=== PATIENT | male | born 1955 | race Hispanic/Latino ===

== ENCOUNTER 2024-10-12 10:32 | Emergency (ER) | payer OTHER, MEDICARE ==
[~2024-10-12] VITALS: Ht 180.3 cm; Wt 126.6 kg
[~2024-10-12 10:32] MED LIST: FURO40TA5 PO; GABA-529 PO; HYDR25TA PO; METF-444 PO; SPIR100T PO; TERA2CAP82 PO
--- NOTE | 2024-10-12 10:47 | ERN ---
ED Note History of Present Illness Stated Complaint: WEAKNESS Chief Complaint: Weakness Time Seen by MD: 10:37 Dictation: PATIENT IS A 69-YEAR-OLD MALE COMING IN TODAY STATES HE HAS BEEN FEELING WEAK FOR THE LAST 2-3 DAYS AND TODAY HIS BLOOD PRESSURE WAS LOW, SYSTOLIC IN THE 90S. HE DENIES CHEST PAIN BACK PAIN SOB. NIH IS 0. HE STATES HE DOES TAKE BLOOD PRESSURE MEDICATIONS AND TOOK HIM THIS MORNING. Allergies: Coded Allergies: No Known Allergies (Unverified Allergy, Unknown, 09/14/24) Home Meds Reported Medications Metoprolol Succinate (Metoprolol Succinate) 100 Mg Tab.er.24h, 100 MG PO DAILY, TAB 10/12/24 Tizanidine HCl (Tizanidine HCl) 4 Mg Tablet, 4 MG PO AD, TAB 10/12/24 Lisinopril (Lisinopril) 40 Mg Tablet, 40 MG PO DAILY, TAB 10/12/24 Furosemide (Furosemide) 40 Mg Tablet, 40 MG PO DAILY, TAB 09/15/24 Spironolactone (Aldactone) 100 Mg Tablet, 100 MG PO DAILY, TAB 09/15/24 Gabapentin (Gabapentin) 100 Mg Capsule, 100 MG PO BID, CAP 09/15/24 Terazosin HCl (Hytrin) 2 Mg Cap, 2 MG PO DAILY, CAP 09/15/24 Hydrochlorothiazide (Hydrochlorothiazide) 25 Mg Tablet, 25 MG PO DAILY, TAB 09/15/24 Metformin HCl (Metformin HCl) 500 Mg Tablet, 500 MG PO DAILY, TAB 09/15/24 Past Medical History Past Medical History: Hypertension Additional Past Medical Hx: BPH Surgical History: Other, None Surgical History Other: RT KNEE SX, ABD HERNIA REPAIR RN Note Reviewed/Agreed w/PFSH: Yes Review of System Dictation CONSTITUTIONAL: NEGATIVE EXCEPT FOR HPI WEAKNESS HEAD/FACE: NEGATIVE EXCEPT FOR HPI EENT: NEGATIVE EXCEPT FOR HPI RESPIRATORY: NEGATIVE EXCEPT FOR HPI GASTROINTESTINAL/ABDOMINAL: NEGATIVE EXCEPT FOR HPI GENITOURINARY: NEGATIVE EXCEPT FOR HPI MUSCULOSKELETAL: NEGATIVE EXCEPT FOR HPI INTEGUMENTARY: NEGATIVE EXCEPT FOR HPI NEUROLOGICAL/PSYCH: NEGATIVE EXCEPT FOR HPI HEMATOLOGIC/LYMPHATIC: NEGATIVE EXCEPT FOR HPI ALL SYSTEMS NEGATIVE, EXCEPT NOTED ABOVE. 13 POINT REVIEW OF SYSTEMS ASSESSED AND ALL NEGATIVE EXCEPT FOR ABOVE. Initial Vital Sign VS Vital Signs Date Time Temp Pulse Resp B/P (MAP) Pulse Ox O2 Delivery O2 Flow Rate FiO2 10/12/24 10:37 97.5 94 16 99/66 96 Room Air 10/12/24 11:21 0 21 Physical Exam Dictation VITAL SIGNS REVIEWED GENERAL APPEARANCE: ALERT, ORIENTED X 3, NO ACUTE DISTRESS, WELL DEVELOPED, NO URISHED. HEAD AND FACE: NON-TRAUMATIC. EYES: PERRL, PINK CONJUNCTIVAS, EYELID NO TRAUMA, ANTERIOR CHAMBER WITH ARCUS SENILIS. EARS: PINNAS INTACT AND NO SIGNS OF TRAUMA OR ERYTHEMA EAR CANALS CLEAR AND NO DISCHARGE TM NO ERYTHEMA NOSE: NO DISCHARGE, NO BLEEDING. OROPHARYNX: MOUTH NORMAL, TONGUE PINK, PHARYNX CLEAR,NO ERYTHEMA, TONSILS NO EXUDATES, NO ABSCESSES NOTED, MUCOUS M EMBRANE MOIST NECK: SUPPLE, NON-TENDER, NO THYROMEGALY, NO MASSES, NO JVD, NO BRUITS BREAST:DEFERRED CHEST:NO TENDERNESS, NO CREPITUS, NO PARADOXICAL MOVEMENT, NO RETRACTIONS LUNGS:CLEAR, WELL-VENTILATED, SYMMETRIC, NO RALES, NO WHEEZING, NO RHONCHI, NO STRIDOR, GOOD BREATH SOUNDS BILATERALLY HEART: REGULAR RATE, REGULAR RHYTHM, NO MURMUR, NO GALLOPS VASCULAR: NO PERIPHERAL EDEMA, ABDOMEN: SOFT, POSITIVE BOWEL SOUNDS, NONDISTENDED, NO GUARDING, NONTENDER, NO REBOUND, NO MASSES NO HEPATOMEGALY, NO SPLENOMEGALY, NO DEY'S SIGN, NO HERNIAS. RECTAL: DEFERRED GENITAL: DEFERRED NEUROLOGICAL: NORMAL SPEECH, MOTOR FUNCTION INTACT, SENSORY FUNCTION INTACT MUSCULOSKELETAL: NECK NONTENDER, FULL RANGE OF MOTION, BACK NONTENDER, FULL RANGE OF MOTION, EXTREMITIES: NONTENDER, FULL RANGE OF MOTION SKIN: COLOR PINK, DRY, NO TURGOR, NO RASH, NO LACERATIONS, NO ABRASIONS, NO CONTUSIONS. LYMPHATIC: DEFERRED Results (Laboratory/Radiology) Laboratory/Radiology Laboratory Tests Test 10/12/24 11:05 10/12/24 12:14 10/12/24 14:16 White Blood Count 9.4 K/uL (4.8-10.8) Red Blood Count 3.28 MIL/uL (4.50-6.20) L Hemoglobin 10.2 g/dL (14.0-18.0) L Hematocrit 31.4 % (42-54) L Mean Corpuscular Volume 95.7 fL (79-99) Mean Corpuscular Hemoglobin 31.1 pg (27.0-33.0) Mean Corpuscular Hemoglobin Concent 32.5 g/dL (32.0-36.0) Red Cell Distribution Width 13.5 % (11.0-15.5) Platelet Count 341 K/uL (130-400) Mean Platelet Volume 9.7 fL (7.5-10.5) Immature Granulocyte % (Auto) 0.7 % (0-1) Neutrophils (%) (Auto) 77.3 % (40.0-77.0) H Lymphocytes (%) (Auto) 12.2 % (21.0-51.0) L Monocytes (%) (Auto) 7.6 % (3.0-13.0) Eosinophils (%) (Auto) 1.7 % (0.0-8.0) Basophils (%) (Auto) 0.5 % (0.0-5.0) Neutrophils # (Auto) 7.3 K/uL (1.8-7.7) Lymphocytes # (Auto) 1.2 K/uL (1.0-4.8) Monocytes # (Auto) 0.7 K/uL (0.1-1.0) Eosinophils # (Auto) 0.16 K/uL (0.00-0.70) Basophils # (Auto) 0.05 K/uL (0.00-0.20) Absolute Immature Granulocyte (auto 0.07 K/uL (0-1) Nucleated Red Blood Cells 0.0 % (0.0-0.19) Sodium Level 139 mmol/L (136-145) Potassium Level 3.9 mmol/L (3.5-5.1) Chloride Level 104 mmol/L (101-111) Carbon Dioxide Level 28 mmol/L (21-32) Blood Urea Nitrogen 35 mg/dL (7-18) H Creatinine 2.0 mg/dL (0.5-1.3) H Glomerular Filtration Rate Calc 36 mL/min (>90) Random Glucose 145 mg/dL (70-105) H Total Calcium 8.8 mg/dL (8.5-10.1) Troponin I High Sensitivity 11 ng/L (4-75) Urine Color YELLOW (YELLOW) Urine Appearance CLEAR (CLEAR) Urine pH 6.0 (5.0-8.0) Urine Specific [place] 1.020 (1.001-1.031) Urine Protein 10 mg/dL (NEGATIVE) H Urine Glucose (UA) NEGATIVE mg/dL (NEGATIVE) Urine Ketones NEGATIVE mg/dL (NEGATIVE) Urine Occult Blood NEGATIVE (NEGATIVE) Urine Nitrate NEGATIVE (NEGATIVE) Urine Bilirubin NEGATIVE mg/dL (NEGATIVE) Urine Urobilinogen 0.2 mg/dL (0.2-1.0) Urine Leukocyte Esterase NEGATIVE Jennifer/uL Urine RBC 0-1 /HPF (0-1) Urine WBC 0-1 /HPF (0-1) Urine Squamous Epithelial Cells RARE /HPF (0-2) Urine Bacteria None /HPF (None Seen) Urine Hyaline Casts 2-5 /LPF (0-1 /LPF) H Lactic Acid Level 2.0 mmol/L (0.8-2.5) Labs Reviewed?: Yes EKG Comment: [facility] Test Date: 2024-10-12 Test Time: 10:55:17 Pat Name: SHAUN JOHN Department: EDH Room: 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 ED Course ED Course Orders Procedure Category Date Status Time Cbc With Differential LAB 10/12/24 Complete 10:45 Troponin I High LAB 10/12/24 Complete Sensitivity 10:45 Urinalysis Profile LAB 10/12/24 Complete 10:45 12 Lead Ekg Tracing- EKG 10/12/24 Complete Technical 10:45 0.9%Nacl 1000ml (Ns PHA 10/12/24 Complete 1000ml) 11:00 Basic Metabolic Panel LAB 10/12/24 Complete 10:45 Blood Cult SALO 10/12/24 In Process 11:29 Lactic Acid LAB 10/12/24 Complete 11:29 Chest 1vw RAD 10/12/24 Resulted 11:29 Current Medications Medications (Trade) Dose Ordered Sig/Ha Route PRN Reason Start Time Stop Time Status Last Admin Dose Admin Sodium Chloride 1,000 ml @ 0 mls/hr ONCE ONCE IV 10/12/24 11:00 10/12/24 11:01 DC 10/12/24 11:09 Vital Signs Date Time Temp Pulse Resp B/P (MAP) Pulse Ox O2 Delivery O2 Flow Rate FiO2 10/12/24 11:49 97.5 96 16 117/67 97 Room Air* 0 21 10/12/24 11:21 82 16 84/47 95 Room Air* 0 21 10/12/24 10:37 97.5 94 16 99/66 96 Room Air 1450/PATIENT KNOW HAS A NORMALIZED BLOOD PRESSURE. HE IS AWARE THAT HE HAS A LACTIC ACID OF 2.0 AND HAS A AN ACUTE KIDNEY INJURY AND I STRONGLY ENCOURAGED HIM TO STAY FOR FLUID REHYDRATION AND MANAGEMENT. HE SAID HE WANTED TO LEAVE HIS SAID SHE AGREED I TOLD HIM TO HAVE HIM SIGN OUT AGAINST MEDICAL ADVICE. HEART Score Response (Comments) Value History: Low suspicion (0) 0 Total 0 Medical Decision Making MDM MEDICAL DECISION-MAKING WAS BASED ON LABS FOR HYPERTENSION TO INCLUDE BLOOD CULTURES AND LACTIC ACID. PATIENT HAS A ACUTE KIDNEY INJURY ON 09/20 HIS CREATININE WAS 1.5. TODAY CREATININE IS 2.0. I WANTED PATIENT TO STAY TO BE TREATED FOR FLUID RESUSCITATION AND MANAGEMENT HE AND HIS SAID THAT THEY WOULD WANT TO GO HOME I HAVE HIM SIGN OUT AGAINST MEDICAL ADVICE DX & DISP Disposition: AMA Departure Impression: Primary Impression: Hypotension Additional Impressions: [id number] kidney injury, Anemia of chronic renal failure, stage 3b, Uncontrolled diabetes mellitus Condition: Stable Referrals: SELF,REFERRAL (PCP) Time of Disposition: 14:53 I have reviewed the case, and I agree with, Diagnosis and Plan SHAMEKA RAO NP Oct 12, 2024 10:47 VAINASH RUIZ DO Oct 12, 2024 16:30
--- NOTE | 2024-10-12 10:50 | NUR ---
PT PLACED IN FAST TRACK ASSUMED CARE AT THIS TIME
[2024-10-12] MEDS: 0.9%NACL 1000ML 1,000 ML IV ONE (11:09)
[2024-10-12 11:17] LABS: BASOPHILS # (AUTO) 0.05 K/uL (0.00-0.20); BASOPHILS % (AUTO) 0.5 % (0.0-5.0); EOSINOPHILS # (AUTO) 0.16 K/uL (0.00-0.70); EOSINOPHILS % (AUTO) 1.7 % (0.0-8.0); HEMATOCRIT 31.4 % (42-54); IMMATURE GRANULOCYTE ABSOLUTE 0.07 K/uL (0-1); LYMPHOCYTES # (AUTO) 1.2 K/uL (1.0-4.8); LYMPHOCYTES % (AUTO) 12.2 % (21.0-51.0); MEAN CORPUSCULAR HEMOGLOBIN 31.1 pg (27.0-33.0); MEAN CORPUSCULAR HGB CONC 32.5 g/dL (32.0-36.0); MEAN CORPUSCULAR VOLUME 95.7 fL (79-99); MONOCYTES # (AUTO) 0.7 K/uL (0.1-1.0); MONOCYTES % (AUTO) 7.6 % (3.0-13.0); NEUTROPHILS # (AUTO) 7.3 K/uL (1.8-7.7); NEUTROPHILS % (AUTO) 77.3 % (40.0-77.0); PLATELET COUNT (AUTO) 341 K/uL (130-400); RED BLOOD CELL COUNT(AUTO) 3.28 MIL/uL (4.50-6.20); RED CELL DISTRIBUTION WIDTH 13.5 % (11.0-15.5); WHITE BLOOD COUNT (AUTO) 9.4 K/uL (4.8-10.8)
[2024-10-12 11:22] LABS: POTASSIUM 3.9 mmol/L (3.5-5.1)
--- NOTE | 2024-10-12 11:26 | EKG ---
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
--- NOTE | 2024-10-12 11:28 | NUR ---
PT MOVED TO ROOM ER 5 REPORT GIVEN TO RUDY RN
[2024-10-12] MEDS ORDERED: LISI40TA9 PO (11:48)
[2024-10-12] MEDS ORDERED: METO-409 PO (11:48)
[2024-10-12] MEDS ORDERED: TIZA-211 PO (11:48)
[2024-10-12 11:49] VITALS: BP 117/67; PULSE 96; RESP 16; TEMP 97.5; O2SAT 97
--- NOTE | 2024-10-12 12:37 | HMCIMG ---
CHEST 1VW HISTORY: Shortness of breath COMPARISON: 09/14/2024 FINDINGS: A frontal projection of the chest was obtained. Mild bilateral pulmonary infiltrates are seen may be related to mild pulmonary vascular congestion with possible superimposed pneumonitis. The heart is borderline enlarged. Degenerative changes are seen. No evidence of aortic calcification is seen. IMPRESSION: 1. Mild bilateral pulmonary infiltrates are seen may be related to mild pulmonary vascular congestion with possible superimposed pneumonitis.
[2024-10-12 13:13] LABS: APPEARANCE,URINE CLEAR (CLEAR); BILIRUBIN,URINE NEGATIVE (NEGATIVE); COLOR,URINE YELLOW (YELLOW); GLUCOSE, URINE (UA) NEGATIVE (NEGATIVE); KETONES,URINE NEGATIVE (NEGATIVE); LEUKOCYTE ESTERASE ,URINE NEGATIVE Leu/uL (NEGATIVE); NITRATE,URINE NEGATIVE (NEGATIVE); OCCULT BLOOD,URINE NEGATIVE (NEGATIVE); PROTEIN,URINE 10 mg/dL (NEGATIVE); UROBILINOGEN,URINE 0.2 mg/dL (0.2-1.0)
[2024-10-12 13:15] LABS: ADD UA MICROSCOPIC YES
[2024-10-12 13:17] LABS: MUCUS,URINE RARE LPF (None Seen); RBC,URINE 0-1 /HPF (0-1); SQUAMOUS EPITHELIAL CELL,UR RARE /HPF (0-2); WBC,URINE 0-1 /HPF (0-1)
== END 2024-10-12 14:50 | disposition left against medical advice (07) ==
LOC: EDH 10:32
DX: I12.9 Hypertensive chronic kidney disease with stage 1 through stage 4 chronic kidney disease, or unspecified chronic kidney disease (principal); E11.22 Type 2 diabetes mellitus with diabetic chronic kidney disease; N18.32 Chronic kidney disease, stage 3b; D63.1 Anemia in chronic kidney disease; I95.9 Hypotension, unspecified; Z79.84 Long term (current) use of oral hypoglycemic drugs; Z79.899 Other long term (current) drug therapy; Z98.890 Other specified postprocedural states
CPT/HCPCS: 99285; 71045; 84484; 80048; 85025; 87040 ×2; 83605; 81001; 36415; 93005; J7030